=== PATIENT | female | born 1965 | race Caucasian/White ===

== ENCOUNTER 2020-06-13 19:41 | Emergency (ER) | payer OTHER ==
[~2020-06-13 19:41] MED LIST: ATIVAN0.5 MG PO; BUSPIRONE HCL15 MG PO; CEFDINIR300 MG PO; ELIQUIS 5 MG TAB5 MG PO; HYDROCHLOROTH12.5 MG PO; LOPRESSOR 25 MG25 MG PO; MULTAQ400 MG PO; NORVASC 5 MG TAB5 MG PO; ROXICODONE5 MG PO
[2020-06-13] MEDS ORDERED: DECADRON6 MG PO (21:21)
[2020-06-13] MEDS ORDERED: DOXYCYCLINE MO100 MG PO (21:21)
[2020-06-13] MEDS ORDERED: VENTOLIN HFA 66.7 GM INH (21:21)
== END 2020-06-13 22:15 | disposition home or self-care (01) ==
LOC: ER1 19:41
DX: U07.1 COVID-19 (principal); J12.82 Pneumonia due to coronavirus disease 2019; I48.91 Unspecified atrial fibrillation; I11.9 Hypertensive heart disease without heart failure; Z86.73 Personal history of transient ischemic attack (TIA), and cerebral infarction without residual deficits; Z90.710 Acquired absence of both cervix and uterus; Z95.1 Presence of aortocoronary bypass graft; Z79.899 Other long term (current) drug therapy
CPT/HCPCS: 71045; 96372; 99284; J1100